=== PATIENT | female | born 1985 | race Caucasian/White ===

== ENCOUNTER 2016-04-15 16:13 | Emergency (ER) | payer SELFPAY ==
[~2016-04-15] VITALS: Ht 170.2 cm; Wt 47.6 kg
[~2016-04-15 16:13] MED LIST: FOLATE1 MG; PRENATAL VITAMI1 T10 PO; PRENATAL VITS
[2016-04-15 16:38] VITALS: BP 107/59
[2016-04-15] MEDS ORDERED: NORCO 5/325 MG1 TAB PO (16:44)
--- NOTE | 2016-04-15 17:15 | NUR ---
PATIENT PRESENTS TO ED WITH C/O RIGHT SIDE PAIN AND UTI SYMPTOMS X 2 DAYS; DENIES N/V/D; SKIN IS PINK/WARM/DRY; AAOX4 WITH EVEN AND STEADY GAIT; LUNGS CLEAR BL; HR EVEN AND REGULAR; PT DENIES ANY FEVER, CP, SOB, OR COUGH AT THIS TIME; PATIENT STATES PAIN OF 7/10 AT THIS TIME; VSS; PATIENT POSITIONED FOR COMFORT; HOB ELEVATED; BEDRAILS UP X2; BED DOWN. ER MD MADE AWARE OF PT STATUS.
--- NOTE | 2016-04-15 17:20 | NUR ---
AAO PT TAKEN TO US VIA WHEEL CHAIR BY RONNY KC
--- NOTE | 2016-04-15 18:20 | NUR ---
DR ALLEN ASSESSING AAO PT AT BEDSIDE
--- NOTE | 2016-04-15 18:30 | NUR ---
PER PT REQUEST, PT PROVIDED WITH CRACKERS AND ORANGE JUICE
--- NOTE | 2016-04-15 18:52 | NUR ---
AAO PT RESTING COMFORTABLY ON BED, TAKING A NAP, AROUSABLE BY NAME, NO C/O PAIN AT THIS TIME, VSS
[2016-04-15 19:05] VITALS: BP 101/61
--- NOTE | 2016-04-15 19:05 | NUR ---
Patient discharged with v/s stable. Written and verbal after care instructions given and explained. Patient alert, oriented and verbalized understanding of instructions. Ambulatory with steady gait. All questions addressed prior to discharge. ID band removed. Patient advised to follow up with PMD. Rx of MACROBID, TYLENOL given. Patient educated on indication of medication including possible reaction and side effects. Opportunity to ask questions provided and answered.
== END 2016-04-15 19:05 | disposition home or self-care (01) ==
LOC: MED 16:13
DX: O23.41 Unspecified infection of urinary tract in pregnancy, first trimester (principal); Z85.42 Personal history of malignant neoplasm of other parts of uterus; Z3A.01 Less than 8 weeks gestation of pregnancy

== ENCOUNTER 2016-04-18 06:05 | Inpatient (IN) | payer MEDICAID ==
[~2016-04-18] VITALS: Ht 170.2 cm; Wt 48.5 kg
[~2016-04-18 06:05] MED LIST changes: +NORCO 5/325 MG1 TAB PO
--- NOTE | 2016-04-18 06:06 | NUR ---
PT SASHA DURANTS. TAKEN TO BED 4
[2016-04-18 06:10] VITALS: BP 121/64
--- NOTE | 2016-04-18 06:10 | NUR ---
Dr. Lott evaluating patient at bedside.
[2016-04-18] MEDS ORDERED: ONDANSETRON 4 MG/2 ML VIAL IVP ONE (06:15)
[2016-04-18] MEDS ORDERED: NACL 0.9% 1,000 ML IV ONE (06:15)
[2016-04-18] MEDS ORDERED: MORPHINE SULFATE 4 MG/ML SYR IVP ONE (06:15)
--- NOTE | 2016-04-18 06:15 | NUR ---
31 Y/O F HERE C/O R FLANK PAIN, HEADACHES AND FEVER X 1 WK. DENIES ANY NAUSEA OR VOMMITING. ER AWARED.
[2016-04-18] MEDS ORDERED: cefTRIAXone 2,000 MG in DEXTROSE 5% 100 ML IV ONE (06:20)
[2016-04-18] MEDS ORDERED: cefTRIAXone 2,000 MG VIAL ONE (06:22)
--- NOTE | 2016-04-18 07:08 | NUR ---
CALLED M/S TO GIVE REPORT ON PT BUT PER NURSE TO CALL BACK LATER.
--- NOTE | 2016-04-18 07:10 | NUR ---
Pt report given to CARLEEN BENNETT. Transfer of care at this time.
--- NOTE | 2016-04-18 07:35 | NUR ---
REPORT GIVEN TO CARLEEN TIRADO AT [facility]
--- NOTE | 2016-04-18 07:35 | NUR ---
Patient will be admitted to care of DR HEAD. Admited to [facility]. Will go to room 120A. Belongings list completed. Report to CARLEEN TIRADO.
[2016-04-18 08:00] VITALS: BP 102/57
--- NOTE | 2016-04-18 08:00 | NUR ---
RECEIVED REPORT FROM ER NURSE. PT IS AAOX4, PT DENIES PAIN/DISCOMFORT AT THIS TIME. SKIN IS DRY AND INTACT. IV IS PATENT AND INTACT. PT IS ON ROOM AIR, VITALS STABLE. ORIENTED PT TO HOSP ENVIRONMENT. WILL CONTINUE TO MONITOR.
[2016-04-18] MEDS ORDERED: DOCUSATE SODIUM 100 MG GELCAP PO PRN (09:20)
[2016-04-18] MEDS: ACETAMINOPHEN 325 MG TAB PO PRN ×2 (09:29→12:58)
--- NOTE | 2016-04-18 09:29 | NUR ---
PT STS SHE IS IN PAIN. OFFERED TYLENOL AND PT REFUSED.
--- NOTE | 2016-04-18 10:28 | NUR ---
PATIENT HAS BEEN SCREENED AND CATEGORIZED HIGH NUTRITION RISK. PATIENT WILL BE SEEN WITHIN 1-2 DAYS OF ADMISSION. 04/18/16-04/19/[address]
[2016-04-18] MEDS: NACL 0.9% 1,000 ML IV SCH (12:48)
[2016-04-18] MEDS: MORPHINE SULFATE 2 MG/ML SYR IVP PRN ×2 (12:51→22:37)
--- NOTE | 2016-04-18 13:00 | NUR ---
PT C/O PAIN, MEDICATED PRESCRIBED.
--- NOTE | 2016-04-18 15:59 | NUR ---
ALL NEEDS MET AT THIS TIME.
[2016-04-18 16:00] VITALS: BP 110/63
--- NOTE | 2016-04-18 16:22 | NUR ---
PT REFUSED BP CHECK. WILL CONTINUE TO ENCOURAGE.
--- NOTE | 2016-04-18 18:20 | NUR ---
PT RESTING COMFORTABLY, AND AROUSABLE. ALL NEEDS MET AT THIS TIME.
--- NOTE | 2016-04-18 19:22 | NUR ---
ENDORSED TO HAIRSPRING STUDDER NURSE FOR CONTINUITY OF CARE IN STABLE CONDITION.
--- NOTE | 2016-04-18 19:23 | NUR ---
RECD. RESTING IN BED, AWAKE, A/OX4. RESPIRATION EVEN AND UNLABORED. IV OF NS AT 85 ML/HR INFUSING, LEFT AC G20. ABLE TO AMBULATE INDEPENDENTLY. PLAN OF CARE FOR THE SHIFT DISCUSSED. VERBALIZED UNDERSTANDING. DENIES PAIN 0/10.
--- NOTE | 2016-04-18 20:00 | NUR ---
Patient's Plan of Care was discussed and reviewed with GABRIELLE: JOSUÉ.
[2016-04-18] MEDS: SACCHAROMYCES 250 MG CAP PO SCH (22:11)
--- NOTE | 2016-04-18 22:35 | NUR ---
COMPLAINT OF BACK PAIN, WILL MEDICATE ORDERED.
--- NOTE | 2016-04-18 22:45 | NUR ---
PATIENT SLEEPING COMFORTABLY, NO APPEARANCE OF PAIN NOTED. WILL CONTINUE TO MONITOR.
--- NOTE | 2016-04-19 | NUR ---
WAKEN UP FOR PLACEMENT OF TELE BOX FOR TELE MONITORING. REFUSED TELE MONITORING, SAY SOME BAD WORDS AND WENT BACK TO SLEEP.
--- NOTE | 2016-04-19 00:50 | NUR ---
RESTING IN BED, EYES CLOSED. INFORMED PATIENT MEDICATION IS ALREADY BEING PREPARE BY RN. VS STABLE.
[2016-04-19] MEDS: MORPHINE SULFATE 2 MG/ML SYR IVP PRN ×2 (01:00→07:09)
--- NOTE | 2016-04-19 01:00 | NUR ---
ASSISTED BY DISEASE CASE MANAGER RN TO GO TO BR TO VOID, BACK TO BED AFTER VOIDING.
[2016-04-19] MEDS: NACL 0.9% 1,000 ML IV SCH ×2 (01:01→12:37)
[2016-04-19 01:07] VITALS: BP 105/65
--- NOTE | 2016-04-19 01:20 | NUR ---
COMPLAINED THAT SHE HAS NOT YET RECEIVED HER PAIN MEDICATION. EXPLAINED THAT IT WAS GIVEN ALREADY BY RN. NEEDS TO WAIT FOR FEW MORE MINUTES TO TAKE EFFECT.
--- NOTE | 2016-04-19 02:00 | NUR ---
CHECKED PATIENT, SLEEPING COMFORTABLY IN BED.
--- NOTE | 2016-04-19 07:00 | NUR ---
SHOUTING, CRYING, KICKING IN BED. WANTS TO HAVE PAIN MEDICATION. EXPLAINED WILL CHECK BP FIRST AND NARCOTICS ARE STILL BEING COUNTED, BUT PAIN MEDICATION WILL BE GIVEN ORDERED.
--- NOTE | 2016-04-19 07:09 | NUR ---
PAIN MEDICATION GIVEN ORDERED BY RN. PATIENT NOW RELAXED IN BED.
--- NOTE | 2016-04-19 07:15 | NUR ---
CONDITION REMAIN STABLE. ENDORSED TO JOSUE MAGUIRE RN FOR CONTINUITY OF CARE.
--- NOTE | 2016-04-19 07:16 | NUR ---
RECEIVED REPORT FROM CONDUCTOR/BRAKEMAN NURSE. PT IS AAOX4, WITH PERIODS OF AGITATION, DENIES PAIN/DISCOMFORT AT THIS TIME. SKIN IS DRY AND INTACT. IV IS PATENT AND FLOWING. PT IS ON ROOM AIR, VITALS STABLE. CALL LIGHT WITHIN REACH. SCD'S AT BEDSIDE. WILL CONTINUE TO MONITOR.
[2016-04-19 08:00] VITALS: BP 98/55
[2016-04-19] MEDS: SACCHAROMYCES 250 MG CAP PO SCH (08:55)
--- NOTE | 2016-04-19 09:37 | NUR ---
PT WITH PERIODS OF AGITATION AND CRYING. STS SHE IS GOING AMA. INFORMED .
--- NOTE | 2016-04-19 10:00 | NUR ---
PT REFUSED TELE MONITOR, AWARE.
[2016-04-19 12:00] VITALS: BP 100/55
--- NOTE | 2016-04-19 12:57 | NUR ---
VITALS REMAIN STABLE. TRAY AT BEDSIDE. WILL CONTINUE TO MONITOR.
--- NOTE | 2016-04-19 13:40 | NUR ---
04/19/16 RD INITIAL ASSESSMENT COMPLETED PLEASE REFER TO NUTRITION ASSESSMENT UNDER CARE ACTIVITY FOR ESTIMATED NUTRITIONAL NEEDS. RD RECOMMENDATIONS: 1. RECOMMEND DIET CHANGE TO REGULAR 2. ENCOURAGE INCREASED PO INTAKES 3. RD TO ADD HEALTH SHAKES TID TO HELP PT MEET ESTIMATED KCAL AND PROTEIN NEEDS 4. RD WILL F/U 3-5 DAYS; MODERATE RISK. ASHOK BOLAND, RD
--- NOTE | 2016-04-19 15:51 | NUR ---
PT SEEN AND EVAL BY DR. DIETZ.
[2016-04-19 16:00] VITALS: BP 110/63
--- NOTE | 2016-04-19 18:00 | NUR ---
DISCUSSED PROS AND CONS OF GOING AMA, PT VERBALIZED UNDERSTANDING.
--- NOTE | 2016-04-19 18:21 | NUR ---
PT SIGNED OUT AMA AND WAS WHEELED OUT WITH FRIEND BY ISAIAH SAN.
--- NOTE | 2016-04-19 18:22 | NUR ---
PRESCRIPTION IN PT'S POSSESSION.
--- NOTE | 2016-04-19 19:28 | NUR ---
IBUPROFEN LEFT WITH PHARMACY.
== END 2016-04-19 18:15 | disposition home or self-care (01) | DRG 781 ==
LOC: MED 06:05 → MTU 07:04
PROVIDERS: ADMIT Family Medicine; ATTEND Family Medicine
DX: O98.811 Other maternal infectious and parasitic diseases complicating pregnancy, first trimester (principal); A41.9 Sepsis, unspecified organism; N17.0 Acute kidney failure with tubular necrosis; E43 Unspecified severe protein-calorie malnutrition; O23.01 Infections of kidney in pregnancy, first trimester; O99.321 Drug use complicating pregnancy, first trimester; O26.831 Pregnancy related renal disease, first trimester; E87.1 Hypo-osmolality and hyponatremia; Z68.1 Body mass index [BMI] 19.9 or less, adult; N10 Acute pyelonephritis; R45.851 Suicidal ideations; F33.1 Major depressive disorder, recurrent, moderate; F15.259 Other stimulant dependence with stimulant-induced psychotic disorder, unspecified; O26.891 Other specified pregnancy related conditions, first trimester; O99.281 Endocrine, nutritional and metabolic diseases complicating pregnancy, first trimester; O99.341 Other mental disorders complicating pregnancy, first trimester; O99.011 Anemia complicating pregnancy, first trimester; O46.8X1 Other antepartum hemorrhage, first trimester; O25.11 Malnutrition in pregnancy, first trimester; R80.9 Proteinuria, unspecified; O99.331 Smoking (tobacco) complicating pregnancy, first trimester; F17.210 Nicotine dependence, cigarettes, uncomplicated; D64.9 Anemia, unspecified; E05.90 Thyrotoxicosis, unspecified without thyrotoxic crisis or storm; E87.8 Other disorders of electrolyte and fluid balance, not elsewhere classified; Z53.21 Procedure and treatment not carried out due to patient leaving prior to being seen by health care provider; E83.51 Hypocalcemia; Z59.0 Homelessness; Z85.42 Personal history of malignant neoplasm of other parts of uterus; Z3A.01 Less than 8 weeks gestation of pregnancy

== ENCOUNTER 2020-12-13 18:28 | Emergency (ER) | payer SELFPAY ==
[~2020-12-13] VITALS: Ht 170.2 cm; Wt 49.4 kg
[~2020-12-13 18:28] MED LIST changes: +ACET-8386 PO; -FOLATE1 MG; -NORCO 5/325 MG1 TAB PO; -PRENATAL VITAMI1 T10 PO; -PRENATAL VITS
[2020-12-13 18:43] VITALS: BP 92/70
--- NOTE | 2020-12-13 18:49 | NUR ---
PT TO AWAIT IN LOBBY
--- NOTE | 2020-12-13 19:12 | NUR ---
ATTEMPTED TO CALL PT IN LOBBY, NO ANSWER AT THIS TIME
--- NOTE | 2020-12-13 20:00 | NUR ---
PT CALLED BY DR. LAUGHLIN WITH NO ANSWER. PATIENT LEFT WITHOUT BEING SEEN BY DR. LAUGHLIN. NO FURTHER CARE PROVIDED FOR PATIENT.
== END 2020-12-13 20:00 | disposition left against medical advice (07) ==
LOC: MED 18:28
DX: M79.601 Pain in right arm (principal); Z53.21 Procedure and treatment not carried out due to patient leaving prior to being seen by health care provider

== ENCOUNTER 2023-02-23 09:18 | Emergency (ER) | payer MEDICAID ==
[~2023-02-23] VITALS: Ht 162.6 cm; Wt 59.0 kg
[~2023-02-23 09:18] MED LIST changes: -ACET-8386 PO; +ACET-8905 PO
[2023-02-23 09:46] VITALS: BP 119/73; PULSE 89; RESP 18; TEMP 97.6; O2SAT 98
[2023-02-23] MEDS ORDERED: ACETAMINOPHEN 325 MG TAB PO ONE (10:20)
[2023-02-23 10:27] LABS: APPEARANCE,URINE CLEAR (CLEAR); BILIRUBIN,URINE NEGATIVE (NEGATIVE); BLOOD, URINE TRACE-I (NEGATIVE); COLOR,URINE YELLOW (YELLOW); LEUKOCYTE ESTERASE ,URINE NEGATIVE (NEGATIVE); NITRITE, URINE NEGATIVE (NEGATIVE); PROTEIN,URINE NEGATIVE (NEGATIVE); UGLUCOSE NEGATIVE (NEGATIVE); UROBILINOGEN,URINE 0.2 EU/dL (0.2 - 1)
[2023-02-23 10:34] LABS: BACTERIA,URINE None Seen /HPF (None Seen); RBC,URINE 0-5 /HPF (0-5); SQUAMOUS EPITHELIAL CELL,UR 4-10 (MOD) /LPF (0-3 (FEW)); WBC,URINE 0-5 /HPF (0-5)
[2023-02-23 11:07] LABS: BASOPHILS % (AUTO) 0.5 % (0.0-2.0); EOSINOPHILS # (AUTO) 0.1 K/uL (0-0.4); HEMATOCRIT 33.1 % (36-48); LYMPHOCYTES # (AUTO) 1.6 K/uL (2.5-16.5); LYMPHOCYTES % (AUTO) 18.8 % (20.5-51.1); MEAN CORPUSCULAR HEMOGLOBIN 32 pg (27-31); MEAN CORPUSCULAR HGB CONC 33 g/dL (33-37); MEAN CORPUSCULAR VOLUME 95.1 fL (80-94); MONOCYTES # (AUTO) 0.8 K/uL (0.8-1.0); MONOCYTES % (AUTO) 8.8 % (1.7-9.3); NEUTROPHILS # (AUTO) 6.1 K/uL (1.8-7.7); NEUTROPHILS % (AUTO) 70.9 % (42.2-75.2); PLATELET COUNT (AUTO) 346 K/uL (140-450); RED BLOOD CELL COUNT(AUTO) 3.48 MIL/uL (4.20-5.40); RED CELL DISTRIBUTION WIDTH 13.5 % (11.6-13.7); WHITE BLOOD COUNT (AUTO) 8.6 K/uL (4.8-10.8)
[2023-02-23 12:13] VITALS: BP 105/57; PULSE 91; RESP 17; TEMP 97.6; O2SAT 100
== END 2023-02-23 12:13 | disposition home or self-care (01) ==
LOC: MED 09:18
DX: O26.891 Other specified pregnancy related conditions, first trimester (principal); R10.2 Pelvic and perineal pain; Z3A.01 Less than 8 weeks gestation of pregnancy; Z79.899 Other long term (current) drug therapy
CPT/HCPCS: 36415; 76815; 81001; 81025; 84702; 85025; 86900; 86901; 99284; Q0092

== ENCOUNTER 2023-05-11 12:47 | Emergency (ER) | payer MEDICAID ==
[~2023-05-11] VITALS: Ht 170.2 cm; Wt 62.6 kg
[2023-05-11 13:09] VITALS: BP 96/62; PULSE 91; RESP 19; TEMP 97.9; O2SAT 96
[2023-05-11] MEDS ORDERED: ACET-10509 PO (14:21)
[2023-05-11] MEDS ORDERED: CEPH-588 PO (14:21)
[2023-05-11 14:55] LABS: BILIRUBIN,URINE NEGATIVE (NEGATIVE); BLOOD, URINE 2+ (NEGATIVE); LEUKOCYTE ESTERASE ,URINE 2+ (NEGATIVE); NITRITE, URINE POSITIVE (NEGATIVE); PH,URINE 7.5 (5.0-9.0); PROTEIN,URINE 2+ (NEGATIVE); UGLUCOSE NEGATIVE (NEGATIVE)
[2023-05-11 14:56] LABS: APPEARANCE,URINE CLOUDY (CLEAR); COLOR,URINE AMBER (YELLOW)
[2023-05-11 15:08] LABS: BACTERIA,URINE None Seen /HPF (None Seen); RBC,URINE 20-50 /HPF (0-5); WBC,URINE 16-25 (MOD) /HPF (0-5)
[2023-05-11 15:09] LABS: MUCUS,URINE 1+ /LPF (None Seen); SQUAMOUS EPITHELIAL CELL,UR 0-3 (FEW) /LPF (0-3 (FEW))
== END 2023-05-11 14:43 | disposition home or self-care (01) ==
LOC: MED 12:47
DX: O23.41 Unspecified infection of urinary tract in pregnancy, first trimester (principal); O99.321 Drug use complicating pregnancy, first trimester; F15.10 Other stimulant abuse, uncomplicated; Z3A.01 Less than 8 weeks gestation of pregnancy; Z79.899 Other long term (current) drug therapy
CPT/HCPCS: 81001; 81025; 87086; 99283

== ENCOUNTER 2023-06-29 21:45 | Observation (INO) | payer MEDICAID ==
[~2023-06-29] VITALS: Ht 170.2 cm; Wt 64.4 kg
[~2023-06-29 21:45] MED LIST changes: +ACET-10509 PO; +CEPH-588 PO
[2023-06-29 23:16] VITALS: BP 102/62; PULSE 81; RESP 18; TEMP 97.6
== END 2023-06-29 23:35 | disposition home or self-care (01) ==
LOC: MLD 21:45
PROVIDERS: ADMIT Obstetrics & Gynecology; ATTEND Obstetrics & Gynecology
DX: O46.92 Antepartum hemorrhage, unspecified, second trimester (principal); O99.332 Smoking (tobacco) complicating pregnancy, second trimester; F17.210 Nicotine dependence, cigarettes, uncomplicated; Z3A.26 26 weeks gestation of pregnancy
CPT/HCPCS: 81000; G0378

== ENCOUNTER 2023-09-06 13:07 | Emergency (ER) | payer MEDICAID ==
[~2023-09-06] VITALS: Ht 170.2 cm; Wt 72.6 kg
[2023-09-06 13:10] VITALS: BP 110/71; PULSE 98; RESP 18; TEMP 98.5; O2SAT 98
[2023-09-06 13:17] VITALS: BP 124/72; PULSE 88; RESP 29; TEMP 97.6
[2023-09-06] MEDS ORDERED: AZIT250T4 PO (13:59)
[2023-09-06] MEDS: ACETAMINOPHEN EXTRA STRENGTH 500 MG TAB PO ONE (14:16)
[2023-09-06 14:54] VITALS: O2SAT 95
== END 2023-09-06 14:17 | disposition home or self-care (01) ==
LOC: MED 13:07
DX: O26.892 Other specified pregnancy related conditions, second trimester (principal); R10.9 Unspecified abdominal pain; O99.512 Diseases of the respiratory system complicating pregnancy, second trimester; R05.9 Cough, unspecified; Z3A.18 18 weeks gestation of pregnancy
CPT/HCPCS: 81002; 81025; 99283

== ENCOUNTER 2023-10-01 07:53 | Observation (INO) | payer MEDICAID ==
[~2023-10-01] VITALS: Ht 170.2 cm; Wt 81.6 kg
[~2023-10-01 07:53] MED LIST changes: -ACET-10509 PO; -ACET-8905 PO; +AZIT250T4 PO; -CEPH-588 PO
[2023-10-01] MEDS ORDERED: PNV91TAB8 PO (08:40)
== END 2023-10-01 08:55 | disposition home or self-care (01) ==
LOC: MLD 07:53
PROVIDERS: ADMIT Obstetrics & Gynecology; ATTEND Obstetrics & Gynecology
DX: O62.9 Abnormality of forces of labor, unspecified (principal); O26.893 Other specified pregnancy related conditions, third trimester; R10.9 Unspecified abdominal pain; Z3A.39 39 weeks gestation of pregnancy
CPT/HCPCS: G0378